=== PATIENT | male | born 1995 | race Hispanic/Latino ===

== ENCOUNTER 2022-12-23 15:33 | Observation (INO) | payer SELFPAY ==
[2022-12-23] MEDS ORDERED: Ampicillin/Sulbactam 1.5 GM VIAL ONE (18:21)
[2022-12-23] MEDS ORDERED: Morphine 4 MG/ML VIAL ONE (18:21)
[2022-12-23] MEDS ORDERED: Lidocaine 1% (PF) 30 ML VIAL ONE (18:58)
[2022-12-23] MEDS ORDERED: Ondansetron ODT 4 MG TAB SL PRN (21:45)
[2022-12-23] MEDS ORDERED: Ondansetron PF 4 MG/2 ML Vial IVP PRN (21:45)
[2022-12-23] MEDS ORDERED: Acetaminophen 325 MG TAB PO PRN (21:45)
[2022-12-23 21:58] VITALS: BMI 25.3
[2022-12-23] MEDS: Acetaminophen 500 MG TAB PO SCH (22:20)
[2022-12-23] MEDS: Ketorolac Tromethamine 30 MG/ML VIAL IVP SCH (22:21)
[2022-12-23] MEDS: traMADol HCl 50 MG TAB PO SCH (22:21)
[2022-12-24] MEDS ORDERED: Ampicillin/Sulbactam 3 GM in Sodium Chloride 0.9% 100 ML IVPB SCH (02:00)
[2022-12-24] MEDS: Acetaminophen 500 MG TAB PO SCH (04:31)
[2022-12-24] MEDS: Ketorolac Tromethamine 30 MG/ML VIAL IVP SCH (04:31)
[2022-12-24] MEDS: traMADol HCl 50 MG TAB PO SCH (04:31)
[2022-12-24 08:15] VITALS: BP 116/71; TEMP 97.9
== END 2022-12-24 10:55 | disposition home or self-care (01) ==
LOC: ERS 15:33 → SURG A 19:30
PROVIDERS: ADMIT Student in an Organized Health Care Education/Training Program; ATTEND Student in an Organized Health Care Education/Training Program
DX: S59.911A Unspecified injury of right forearm, initial encounter (principal); S59.912A Unspecified injury of left forearm, initial encounter; S50.852A Superficial foreign body of left forearm, initial encounter; W40.0XXA Explosion of blasting material, initial encounter
CPT/HCPCS: 96365; 96374; 96375; 96376; 97139; G0378; J0295; J1885; J2001; J2270; J3490